=== PATIENT | male | born 1965 | race Caucasian/White ===

== ENCOUNTER 2016-08-22 18:34 | Emergency (ER) | payer OTHER ==
[~2016-08-22] VITALS: Ht 185.4 cm; Wt 111.1 kg
[~2016-08-22 18:34] MED LIST: ASPIRIN CHILDRE81 MG PO; BACTRIM DS TAB1 EACH PO; CIPRO 500MG (E500 MG PO; CIPRO 500MG TA500 MG PO; ENTOCORT EC3 MG PO; FLAG500 PO; HUMIRA (4040 MG/0.8; HUMIRA (4040 MG/0.8 INJ; HUMIRA PEN40 MG/0.8 SC; MI-ACID GAS REL80 MG PO; MULTIPLE VITAM1 EAC2 PO; MULTIVITAMIN1 TAB PO; OXYCODONE5 MG PO; PERCOCET 325 MG1 TA2 PO; PERCOCET 5-3251 EACH PO; PREDNISONE 10MG10 M1 PO; PREDNISONE 20MG20 MG PO; PREDNISONE10 MG PO; PREDNISONE20 MG PO; PREDNISONE5 MG PO; PREDNISONE50 MG PO; TRAMADOL HYDROC50 MG PO; XANAX0.5 MG PO; ZOFRAN ODT4 MG PO; ZOFRAN4 M1 PO; ZOFRAN4 M1 SL
--- NOTE | 2016-08-22 18:49 | ED GENERAL ADULT ---
History of Present Illness General Chief Complaint: General Adult Stated Complaint: PER PT SEVERE ANXIETY ATTACK Source: patient Exam Limitations: no limitations Vital Signs & Intake/Output Vital Signs & Intake/Output Vital Signs Date Time Temp Pulse Resp B/P Pulse O2 O2 Flow FiO2 Ox Delivery Rate 08/22 2117 98 Room Air 08/23 2027 97.5 95 18 137/88 94 08/22 1837 96.3 91 20 154/89 99 Room Air Room Air ED Intake and Output 08/23 0000 08/22 1200 Intake Total Output Total Balance Patient 245 lb Weight Allergies Coded Allergies: infliximab (From REMICADE) (Severe, SHORT OF BREATH 09/06/15) Penicillins (PLATELETS DECREASE 11/04/15) cefuroxime (GI DISTRESS 09/06/15) ibuprofen (AVOIDS IBUPROFEN - UPSET STOMACH 11/03/15) Reconcile Medications Adalimumab (Humira Pen) 40 MG/0.8 ML PEN.IJ.KIT 1 SYR SC QW CHRONS (Reported) Multivitamin (Multiple Vitamins) 1 EACH TABLET 1 TAB PO EOD SUPPLEMENT ( Reported) Oxycodone HCl/Acetaminophen (Percocet 5-325 MG Tablet) 1 EACH TABLET 1-2 TAB PO Q4-6 PRN PAIN Sulfamethoxazole/Trimethoprim (Bactrim Ds Tablet) 1 EACH TABLET 1 TAB PO BID INTRA-ABDOMINAL INFECTION TAKE WITH FOOD Triage Note: PT TO ED WITH C/O ANXIETY ATTACK, WORK IS VERY STRESSFUL AND I HAD CANCER AND WENT THROUGH CHEMO, NOW SOMETHING WITH MY LYMPH NODES, SO I'M WORRIED ABOUT THAT TOO, HAD A PET SCAN YESTERDAY. Triage Nurses Notes Reviewed? yes Onset: Abrupt Duration: hour(s): Timing: recent history HPI: 08/22/16 This 51-year-old man with a past medical history of intestinal cancer. He status post resection, and is status post chemotherapy. He said that he has a history of anxiety and today felt very anxious as his waiting for the results of his PET scan. He denies chest pain but admits to heart fluttering. The onset of the symptoms were abrupt, the duration was just today, the severity was significant as his symptoms required him to come to the emergency department for care. He did say that he had a recent CT scan of the abdomen which showed some lymph nodes and this concerned him and prompted the need for the PET scan. He did try a Xanax earlier today. No chest pain. No shortness of breath. Past History Travel History Traveled to [place] past [place] day No Medical History Any Pertinent Medical History? 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 FATHER (none contributory). Hx Contributory? No Review of Systems Review of Systems Constitutional: Denies: fever. EENTM: Denies: visual changes. Respiratory: Denies: short of breath. Cardiovascular: Reports: palpitations. Denies: chest pain. GI: Denies: abdominal pain. Genitourinary: Reports: no symptoms. Musculoskeletal: Reports: no symptoms. Skin: Reports: no symptoms. Neurological/Psychological: Reports: no symptoms. Hematologic/Endocrine: Reports: no symptoms. Immunologic/Allergic: Reports: no symptoms. Physical Exam Physical Exam General Appearance: alert, awake, anxious, mild distress Head: atraumatic, normal appearance Eyes: Bilateral: normal appearance, PERRL, EOMI. Ears, Nose, Throat: normal pharynx, normal ENT inspection Neck: normal inspection, supple, full range of motion Respiratory: normal breath sounds, chest non-tender, no respiratory distress Cardiovascular: regular rate/rhythm Peripheral Pulses: 4+ radial (R), 4+ radial (L) Gastrointestinal: non-tender Back: vertebral tenderness Extremities: normal range of motion Neurologic/Psych: no motor/sensory deficits, awake, alert, oriented x 3 Skin: intact, normal color, warm/dry Core Measures ACS in differential dx? No CVA/TIA Diagnosis: No Severe Sepsis Present: No Septic Shock Present: No Progress Differential Diagnoses I considered the following diagnoses in my evaluation of the patient: [ Dysrhythmia, electrolyte derangement, anxiety, pulmonary embolism,] Plan of Care: Orders Procedure Date/time Status TROPONIN LEVEL 08/22 1853 Complete COMPREHENSIVE METABOLIC PANEL 08/22 1853 Complete CBC WITHOUT DIFFERENTIAL 08/22 1853 Complete EKG 08/22 1853 Active Laboratory Tests 08/22/16 2002: Anion Gap 11, Estimated GFR > 60, BUN/Creatinine Ratio 12.9, Glucose 86, Calcium 9.4, Total Bilirubin 0.5, AST 15 L, ALT 24, Alkaline Phosphatase 84, Troponin I < 0.01, Total Protein 6.9, Albumin 3.4 L, Globulin 3.5, Albumin/Globulin Ratio 1.0 L, CBC w Diff NO MAN DIFF REQ, RBC 4.07 L, MCV 94.1 H, MCH 29.9, RDW 14.8 H, MPV 8.8, Gran % 71.0, Lymphocytes % 15.7 L, Monocytes % 11.0 H, Eosinophils % 1.3, Basophils % 1.0, Absolute Granulocytes 7.4 H, Absolute Lymphocytes 1.6, Absolute Monocytes 1.2 H, Absolute Eosinophils 0.1, Absolute Basophils 0.1, PUBS MCHC 31.7 L Initial ED EKG: NSR, PVC Departure Departure Disposition: HOME OR SELF CARE Condition: Stable Clinical Impression Primary Impression: Anxiety Secondary Impressions: Palpitations, PVC (premature ventricular contraction) Referrals: APRIL ZEPEDA,PUNEET Kraft (PCP/Family) Departure Forms: Customer Survey General Discharge Information Comments 08/22/16 9 PM The patient symptoms resolved with Ativan. EKG unremarkable other than PVC. Troponin was negative. Vital signs are stable. He will follow-up with the medical support specialist and continue the Xanax as directed, return to the emergency department if worse Critical Care Note Critical Care Note Critical Care Time: non-applicable
[2016-08-22 20:22] LABS: ABSOLUTE BASOPHIL COUNT 0.1 /CUMM (0.0-0.2); ABSOLUTE EOSINOPHIL COUNT 0.1 /CUMM (0.0-0.7); ABSOLUTE GRANULOCYTE CT 7.4 /CUMM (1.4-6.5); ABSOLUTE LYMPH COUNT 1.6 /CUMM (1.2-3.4); ABSOLUTE MONOCYTE COUNT 1.2 /CUMM (0.10-0.60); EOSINOPHIL % 1.3 % (0-5); HEMATOCRIT 38.3 % (42-52); MEAN CORPUSCULAR HGB 29.9 PG (27.0-31.0); MEAN CORPUSCULAR HGB CONC 31.7 G/DL (33.0-37.0); MEAN CORPUSCULAR VOLUME 94.1 FL (80.0-94.0); MEAN PLATELET VOLUME 8.8 FL (7.4-10.4); PLATELET COUNT 374 /CUMM (130-400); RBC DISTRIBUTION WIDTH 14.8 % (11.5-14.5); RED BLOOD CELL CT 4.07 /CUMM (4.70-6.10); WHITE BLOOD CELL COUNT 10.5 /CUMM (4.8-10.8)
[2016-08-22 20:28] VITALS: BP 137/88
== END 2016-08-22 21:19 ==
LOC: ERH 18:34
PROVIDERS: Emergency Medicine
DX: F41.9 Anxiety disorder, unspecified (principal); R00.2 Palpitations; I49.3 Ventricular premature depolarization
CPT/HCPCS: 93005; 93010

== ENCOUNTER 2016-09-22 18:18 | Emergency (ER) | payer OTHER ==
[~2016-09-22] VITALS: Ht 185.4 cm; Wt 111.1 kg
[2016-09-22] MEDS ORDERED: ALPRAZOLAM0.25 M1 PO (19:29)
[2016-09-22] MEDS ORDERED: LYRICA75 M1 PO (19:29)
[2016-09-22] MEDS ORDERED: ESCITALOPRAM OX10 MG PO (19:29)
[2016-09-22] MEDS ORDERED: LOMOTIL 2.5-0.1 EACH PO (19:30)
[2016-09-22] MEDS ORDERED: TRAZODONE HCL50 M1 PO (19:30)
[2016-09-22] MEDS ORDERED: ASPIRIN EC81 M1 PO (19:30)
--- NOTE | 2016-09-22 20:39 | ED CARDIAC/CP/PALPITATIONS ---
History of Present Illness General Chief Complaint: General Adult Stated Complaint: CHRONIC INSOMNIA Source: patient, FATHER Exam Limitations: no limitations Vital Signs & Intake/Output Vital Signs & Intake/Output Vital Signs Date Time Temp Pulse Resp B/P Pulse O2 O2 Flow FiO2 Ox Delivery Rate 09/22 1901 98 Room Air 09/22 1837 98.3 93 14 143/98 99 Room Air Allergies Coded Allergies: infliximab (From REMICADE) (Severe, SHORT OF BREATH 09/06/15) Penicillins (PLATELETS DECREASE 11/04/15) cefuroxime (GI DISTRESS 09/06/15) ibuprofen (AVOIDS IBUPROFEN - UPSET STOMACH 11/03/15) Reconcile Medications Alprazolam 0.25 MG TABLET 1 TAB PO TIDPRN PRN ANXIETY (Reported) Aspirin (Ecotrin*) 81 MG TABLET.DR 1 TAB PO DAILY HEART/BLOOD (Reported) Diphenoxylate HCl/Atropine (Lomotil 2.5-0.025 MG Tablet) 2.5 MG-0.025 MG TABLET 1 TAB PO 4 TIMES/DAY PRN DIARRHEA (Reported) Escitalopram Oxalate 10 MG TABLET 1 TAB PO DAILY MENTAL HEALTH (Reported) Multivitamin (Multiple Vitamins) 1 EACH TABLET 1 TAB PO EOD SUPPLEMENT ( Reported) Pregabalin (Lyrica) 75 MG CAPSULE 1 CAP PO BID NERVE PAIN (Reported) Trazodone HCl 50 MG TABLET 1 TAB PO QPM SLEEP (Reported) Triage Note: PT TO ED FOR PALPITATIONS AND "CHRONIC INSOMNIA" REPORTING HE IS SUPPOSED TO GET A HOLTER MONITOR TOMORROW "FOR PVC'S" PT ALSO REPORTING HE HAS BEEN UNABLE TO "SLEEP IN 3 WEEKS, BUT I NAPPED TODAY." DENIES CP, SOB, GIBBS. Triage Nurses Notes Reviewed? yes HPI: Patient presents for evaluation of heart palpitations that he feels are due to anxiety stress and insomnia. Patient states he has had intermittent episodes of heart palpitations over the past month and has a Holter monitor pending via his primary care doctor, Dr. Rico. He denies any syncopal episodes. He states he has only minimal caffeine intake, not daily. His physician gave him Lexapro and trazodone for sleep. He has been taking Xanax for about one year for stress and anxiety. The Lexapro he began about 2 weeks ago and the trazodone about one week ago although he states he has taken the trazodone inconsistently. He feels his stress and anxiety are severe and more or less constant but fluctuating in intensity. Medications he is currently taking are not helping. Past History Travel History Traveled to [place] No Medical History Any Pertinent Medical History? 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 FATHER (none contributory). Hx Contributory? No Review of Systems Review of Systems Constitutional: Reports: no symptoms. EENTM: Reports: no symptoms. Respiratory: Reports: no symptoms. Cardiovascular: Reports: see HPI. GI: Reports: no symptoms. Genitourinary: Reports: no symptoms. Musculoskeletal: Reports: no symptoms. Skin: Reports: no symptoms. Neurological/Psychological: Reports: see HPI. Hematologic/Endocrine: Reports: no symptoms. Immunologic/Allergic: Reports: no symptoms. All Other Systems: Reviewed and Negative Physical Exam Physical Exam Cardiovascular: SEE BELOW Comments: General: Alert, calm, cooperative Head: Normocephalic, atraumatic Eyes: Normal inspection, no nystagmus, EOMI Ears: Normal inspection Nose: Normal inspection Throat: Moist mucosa Neck: Supple, no goiter Heart: Regular rate and rhythm, no murmurs rubs or gallops Lungs: Clear to auscultation bilaterally with good air entry Abdomen: Soft nontender nondistended, normal bowel sounds Chest: Nontender Extremities: Normal range of motion grossly, mild tremors present, no cyanosis clubbing or edema of the upper extremities Neurologic: cranial nerves II through XII grossly intact, speech clear, gait normal Psychiatric: No apparent delusions or hallucinations, no pressured speech or thought blocking Core Measures ACS in differential dx? No Severe Sepsis Present: No Septic Shock Present: No Progress Differential Diagnosis: STRESS, ANXIETY, INSOMNIA, DYSRHYTHMIA, pvcS, pacS Plan of Care: Orders Procedure Date/time Status Telemetry/Parcel Post Weigher 09/22 2037 Active TROPONIN LEVEL 09/22 2037 Complete MAGNESIUM 09/22 2037 Complete CBC WITHOUT DIFFERENTIAL 09/22 2037 Complete BASIC METABOLIC PANEL 09/22 2037 Complete EKG 09/22 1838 Active Laboratory Tests 09/22/162050: Anion Gap 10, Estimated GFR > 60, BUN/Creatinine Ratio 10.0, Glucose 97, Calcium 10.1, Magnesium 1.5 L, Troponin I < 0.01, CBC w Diff NO MAN DIFF REQ, RBC 4.85, MCV 89.4, MCH 28.5, RDW 14.7 H, MPV 8.5, Gran % 76.1 H, Lymphocytes % 14.2 L, Monocytes % 8.6, Eosinophils % 0.7, Basophils % 0.4, Absolute Granulocytes 10.2 H, Absolute Lymphocytes 1.9, Absolute Monocytes 1.1 H, Absolute Eosinophils 0.1 , Absolute Basophils 0.1, PUBS MCHC 31.8 L Initial ED EKG: NSR, rate (72), no ST T wave changes Prior EKG: changed (1 PVC ON PRIOR) Rhythm Strip: normal sinus rhythm Comments: 09/22/2016 10:15:32 PM I have updated Gilberto on his test results. He had a brief episode of a pinching left lateral inferior chest pain that was likely secondary to positioning on the stretcher. I've advised him of the PVC seen on his prior EKG and of his slightly low magnesium level. Plan magnesium supplementation, Ambien to help with sleep (discontinuation of trazodone) and follow-up with his Holter monitor on Saturday and his primary care physician on Saturday as already scheduled. Departure Departure Disposition: HOME OR SELF CARE Condition: Stable Clinical Impression Primary Impression: PVCs (premature ventricular contractions) Secondary Impressions: Hypomagnesemia Insomnia Qualifiers: Insomnia type: unspecified Qualified Code: G47.00 - Insomnia, unspecified Referrals: APRIL ZEPEDA,PUNEET Kraft (PCP/Family) Additional Instructions: Discontinue the trazodone and begin Ambien to help with sleep. Magnesium as prescribed. Follow-up with the Holter monitor as scheduled on Saturday and your primary care physician as scheduled on Saturday to reevaluate to magnesium level and her ability to sleep. Return immediately if any concerns or sudden worsening. Thank you for choosing the [facility] for your care. It was a pleasure to serve you today. Maximus Quigley M.D. [facility] Departure Forms: Customer Survey General Discharge Information Prescriptions: Current Visit Scripts Zolpidem Tartrate (Ambien) 1 TAB PO QPMP #10 TAB Magnesium Oxide (Magnesium) 1 CAP PO DAILY #30 CAP Critical Care Note Critical Care Note Critical Care Time: non-applicable
[2016-09-22 21:00] LABS: ABSOLUTE BASOPHIL COUNT 0.1 /CUMM (0.0-0.2); ABSOLUTE EOSINOPHIL COUNT 0.1 /CUMM (0.0-0.7); ABSOLUTE GRANULOCYTE CT 10.2 /CUMM (1.4-6.5); ABSOLUTE LYMPH COUNT 1.9 /CUMM (1.2-3.4); ABSOLUTE MONOCYTE COUNT 1.1 /CUMM (0.10-0.60); BASOPHIL % 0.4 % (0.0-2.0); EOSINOPHIL % 0.7 % (0-5); GRANULOCYTE % 76.1 % (42.2-75.2); HEMATOCRIT 43.4 % (42-52); MEAN CORPUSCULAR HGB 28.5 PG (27.0-31.0); MEAN CORPUSCULAR HGB CONC 31.8 G/DL (33.0-37.0); MEAN CORPUSCULAR VOLUME 89.4 FL (80.0-94.0); MEAN PLATELET VOLUME 8.5 FL (7.4-10.4); PLATELET COUNT 367 /CUMM (130-400); RBC DISTRIBUTION WIDTH 14.7 % (11.5-14.5); RED BLOOD CELL CT 4.85 /CUMM (4.70-6.10); WHITE BLOOD CELL COUNT 13.3 /CUMM (4.8-10.8)
[2016-09-22] MEDS ORDERED: MAGNESIUM400 M1 PO (22:18)
[2016-09-22] MEDS ORDERED: AMBIEN5 M1 PO (22:18)
[2016-09-22 22:33] VITALS: BP 138/69
== END 2016-09-22 22:33 ==
LOC: ERH 18:18
PROVIDERS: Emergency Medicine
DX: I49.3 Ventricular premature depolarization (principal); E83.42 Hypomagnesemia; G47.00 Insomnia, unspecified
CPT/HCPCS: 93005; 93010

== ENCOUNTER 2016-09-28 03:56 | Emergency (ER) | payer OTHER ==
[~2016-09-28] VITALS: Ht 185.4 cm; Wt 104.3 kg
[~2016-09-28 03:56] MED LIST changes: +ALPRAZOLAM0.25 M1 PO; +AMBIEN5 M1 PO; +ASPIRIN EC81 M1 PO; +ESCITALOPRAM OX10 MG PO; +LOMOTIL 2.5-0.1 EACH PO; +LYRICA75 M1 PO; +MAGNESIUM400 M1 PO; +TRAZODONE HCL50 M1 PO
--- NOTE | 2016-09-28 04:37 | ED PSYCHIATRIC COMPLAINT ---
History of Present Illness General Chief Complaint: General Adult Stated Complaint: " I'M HAVING A FULL BLOWN ANXIETY ATTACK" Source: patient, family, old records Exam Limitations: no limitations Vital Signs & Intake/Output Vital Signs & Intake/Output Vital Signs Date Time Temp Pulse Resp B/P Pulse O2 O2 Flow FiO2 Ox Delivery Rate 09/29 0537 97.7 81 18 113/68 96 09/28 2044 97.1 92 18 147/86 98 Room Air 09/28 1311 82 16 132/74 94 Room Air 09/28 0959 87 16 128/72 98 Room Air ED Intake and Output 09/29 0000 09/28 1200 Intake Total Output Total Balance Patient 230 lb Weight Allergies Coded Allergies: infliximab (From REMICADE) (Severe, SHORT OF BREATH 09/06/15) Penicillins (PLATELETS DECREASE 11/04/15) azathioprine (From IMURAN) ("PLATLETS DISAPPEARED" 09/28/16) cefuroxime (GI DISTRESS 09/06/15) ibuprofen (AVOIDS IBUPROFEN - UPSET STOMACH 11/03/15) Triage Note: 51 YO MALE WITH HX OF ANXIETY TO ED COMPLAINING OF INCREASING ANXIETY RELATED TO INABILITY TO SLEEP. DENIES HI. WHEN QUESTIONED ABOUT SI STATES "I DONT WANT TO HURT MYSELF BUT I WOULD GO TO [facility] TO GET SOME SLEEP. I NEED TO BE ADMITTED AND THEY NEED TO GIVE ME SOMETHING TO SLEEP." REPORTS ONLY SLEEPING "A COUPLE HOURS A NIGHT FOR 1 MONTH." HAS TAKEN MELATONIN, TYLENOL PM, AMBIEN AND TRAZADONE WITHOUT RELIEF. Triage Nurses Notes Reviewed? yes Onset: 1 month Duration: week(s):, constant, continues in ED, getting worse Timing: recent history Severity: severe Associated Symptoms: anxiety, insomnia, suicidal ideation HPI: 1 month prior to admission patient complains of increasing insomnia despite increasing doses of Lexapro Xanax and Ambien. It has gotten to the point that he wants to and considers suicide. His mother requests admission so he can be put to sleep. He denies complaints of fever chills nausea vomiting diarrhea abdominal pain chest pain shortness of breath headache dysuria rash bleeding. (JOHN ZEPEDA,NOVA) Reconcile Medications Alprazolam 0.25 MG TABLET 1 TAB PO TIDPRN PRN ANXIETY (Reported) Aspirin (Ecotrin*) 81 MG TABLET.DR 1 TAB PO DAILY HEART/BLOOD (Reported) Diphenoxylate HCl/Atropine (Lomotil 2.5-0.025 MG Tablet) 2.5 MG-0.025 MG TABLET 1 TAB PO 4 TIMES/DAY PRN DIARRHEA (Reported) Escitalopram Oxalate 10 MG TABLET 1 TAB PO DAILY MENTAL HEALTH (Reported) Magnesium Oxide 400 MG TABLET 1 TAB PO DAILY REPLACEMENT (Reported) Magnesium Oxide (Magnesium) 400 MG CAPSULE 1 CAP PO DAILY low magnesium level Multivitamin (Multiple Vitamins) 1 EACH TABLET 1 TAB PO EOD SUPPLEMENT ( Reported) Pregabalin (Lyrica) 75 MG CAPSULE 1 CAP PO BID NERVE PAIN (Reported) Trazodone HCl 50 MG TABLET 1 TAB PO QPM SLEEP (Reported) Zolpidem Tartrate 5 MG TABLET 1 TAB PO QPMP SLEEP (Reported) Zolpidem Tartrate (Ambien) 5 MG TABLET 1 TAB PO QPMP insomnia (RASHI ZEPEDA,CASH) Past History Travel History Traveled to [place] past [place] No Medical History Any Pertinent Medical History? 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 FATHER (none contributory). Hx Contributory? No (NOVA LOPEZ MD) Review of Systems Review of Systems Constitutional: Reports: no symptoms. EENTM: Reports: no symptoms. Respiratory: Reports: no symptoms. Cardiovascular: Reports: no symptoms. GI: Reports: no symptoms. Genitourinary: Reports: no symptoms. Musculoskeletal: Reports: no symptoms. Skin: Reports: no symptoms. Neurological/Psychological: Reports: see HPI. Denies: anxiety. Hematologic/Endocrine: Reports: no symptoms. Immunologic/Allergic: Reports: no symptoms. All Other Systems: Reviewed and Negative (NOVA LOPEZ MD) Physical Exam Physical Exam General Appearance: well developed/nourished, alert, awake, anxious, moderate distress Head: atraumatic, normal appearance Eyes: Bilateral: normal appearance, PERRL, EOMI. Ears, Nose, Throat: normal pharynx, normal ENT inspection, hearing grossly normal, moist mucus membranes Neck: normal inspection, supple, full range of motion, no midline tenderness Respiratory: normal breath sounds, chest non-tender, no respiratory distress, quiet respiration, lungs clear Cardiovascular: regular rate/rhythm, normal peripheral pulses, norml femoral pulses equa Gastrointestinal: normal bowel sounds, soft, non-tender, no organomegaly Extremities: normal range of motion, no ligament instability Neurological/Psychiatric: no motor/sensory deficits, awake, agitated, alert, anxious, workflow 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 psych referral * no evidence of toxic ingestion * on re-evaluation the patient is awake and alert with normal speech and normal gait. The patient is clinically sober and safe for discharge / detox referral SAD PERSONS SAD PERSONS Response Value Male Sex? yes 1 Age <19 or >45 years? yes 1 Depression/Hopelessness? yes 2 Rational Thinking Loss? yes 2 Single//? yes 1 Social Support? has support 0 Stated Future Intent? yes 2 Total 9 SAD PERSONS Done? yes (NOVA LOPEZ MD) Progress Differential Diagnosis: drug intoxication, drug overdose, drug withdrawal, electrolyte abnormality, hypoglycemia Plan of Care: Orders Procedure Date/time Status Continuous Observation Monitor 09/29 813 Active Current Medications Sig/Gia Start time Last Medication Dose Stop Time Status Admin Pregabalin 75 MG BID 09/28 1000 UNVr (Lyrica) Gabapentin 300 MG Q8 09/28 0906 UNVr (Neurontin) 09/28/2016 7:16:09 AM Patient signed out to me by Dr. Lopez. Pending crisis evaluation and disposition. 09/29/2016 7:16:48 AM Patient signed out to me by Dr. Barajas. Pending crisis evaluation and disposition. 9:39 AM CLEARED FOR DISCHARGE BY PSYCHIATRIST. (CASH MARKHAM MD) Hand-Off Endorsed To: CASH MARKHAM MD Endorsed Time: 0700 Pending: consult (NOVA LOPEZ MD) Hand-Off Endorsed To: LETTY BARAJAS MD Endorsed Time: 190 Pending: consult (CRISIS REEVAL IN AM) (CASH MARKHAM MD) Hand-Off Endorsed To: CASH MARKHAM MD Endorsed Time: 0700 Pending: consult (LETTY BARAJAS MD) Departure Departure Condition: Stable Clinical Impression Primary Impression: Insomnia disorder Qualifiers: Insomnia type: unspecified Qualified Code: G47.00 - Insomnia, unspecified Secondary Impressions: Anxiety Referrals: PUNEET CHEN MD (PCP/Family) Departure Forms: Customer Survey General Discharge Information (NOVA LOPEZ MD) Departure Time of Disposition: 929 Disposition: HOME OR SELF CARE Additional Instructions: FOLLOW UP WITH YOUR OUTPATIENT COUNSELLOR. (CASH MARKHAM MD) Disposition: STILL A PATIENT Condition: Stable Clinical Impression Primary Impression: Insomnia disorder Qualifiers: Insomnia type: unspecified Qualified Code: G47.00 - Insomnia, unspecified Secondary Impressions: Anxiety Referrals: PUNEET CHEN MD (PCP/Family) Departure Forms: Customer Survey General Discharge Information (NOVA LOPEZ MD)
[2016-09-28 04:49] LABS: ABSOLUTE BASOPHIL COUNT 0 /CUMM (0.0-0.2); ABSOLUTE EOSINOPHIL COUNT 0.1 /CUMM (0.0-0.7); ABSOLUTE GRANULOCYTE CT 10.6 /CUMM (1.4-6.5); ABSOLUTE LYMPH COUNT 1.3 /CUMM (1.2-3.4); ABSOLUTE MONOCYTE COUNT 1.1 /CUMM (0.10-0.60); BASOPHIL % 0.2 % (0.0-2.0); EOSINOPHIL % 0.9 % (0-5); GRANULOCYTE % 80.2 % (42.2-75.2); HEMATOCRIT 42.9 % (42-52); MEAN CORPUSCULAR HGB 28.5 PG (27.0-31.0); MEAN CORPUSCULAR HGB CONC 31.9 G/DL (33.0-37.0); MEAN CORPUSCULAR VOLUME 89.3 FL (80.0-94.0); MEAN PLATELET VOLUME 8.7 FL (7.4-10.4); PLATELET COUNT 330 /CUMM (130-400); WHITE BLOOD CELL COUNT 13.2 /CUMM (4.8-10.8)
--- NOTE | 2016-09-28 16:17 | ED PSYCH CRISIS CONSULTATION ---
See Addendum Crisis Consult Basic Assessment Date of Consult: 09/28/16 Responsible Person/Accompanied By: Mother Insurance Authorization: Insurance #1: Insurance name: RICHARD JAY Phone number: Policy number: [id number] Group number: [id number] Authorization number: ED Provider: Patient's ED Provider: NOVA LOPEZ MD Primary Care Physician: Patient's PCP: PUNEET CHEN MD PCP's Chief Complaint: General Adult Patient's Quote: " I have not gotten any good sleep since a month ago." Present Illness: Pt is a 51 yo single ( never ) male BIB mother for chronic insomnia and passive SI. Per pt notes he stated "he has not been able to get a good nights sleep and that he would go to great lengths to get some." Pt UTOX was postive for benzos as he was given xanax in ED early this AM. Pt Utox was negative for all other substances. Pt presented as cooperative during crisis eval. He stated his main concern is his sleep. Pt currently lives at home with his parents and has 1 sister who lives local with her family and is very supportive. Pt said he has had a bad past year since a cancerous tumor was found and was surgically removed. 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 He stated he had chemo-therapy treatment from November 2015-Jun 2016. 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 Pt denies hx of MH/SA tx and hospitalizations. He noted he only takes medications as prescribed and are " mainly over the counter " ie. tylenol pm. Pt said he has had SI thoughts before but no concrete thought or idea of how we would take his own life. Pt says he does not feel safe in the world at the moment and is seeking voluntary admission. This headline writer consulted [facility] Dr. Katz. Pt to be held over for re-evaluation in the am and recommends trazadone for good night's sleep. Patient's Address: [address] [place] [address] Other Who Do You Live With? Father Family/Informants Interviewed: pt unable to participate Allergies - Coded Allergies: infliximab (From REMICADE) (Severe, SHORT OF BREATH 09/06/15) Penicillins (PLATELETS DECREASE 11/04/15) azathioprine (From IMURAN) ("PLATLETS DISAPPEARED" 09/28/16) cefuroxime (GI DISTRESS 09/06/15) ibuprofen (AVOIDS IBUPROFEN - UPSET STOMACH 11/03/15) Current Medications - Scheduled Medications Aspirin (Ecotrin*) 81 MG TABLET.DR 1 TAB PO DAILY HEART/BLOOD (Reported) Entered as Reported by SOLIS LONG on 09/22/16 193 Escitalopram Oxalate 10 MG TABLET 1 TAB PO DAILY MENTAL HEALTH #30 (Reported) Entered as Reported by SOLIS LONG on 09/22/16 192 Magnesium Oxide (Magnesium) 400 MG CAPSULE 1 CAP PO DAILY low magnesium level #30 CAP Prescribed by NICOLETTE GODINEZ MD on 09/22/16 Multivitamin (Multiple Vitamins) 1 EACH TABLET 1 TAB PO EOD SUPPLEMENT ( Reported) Entered as Reported by SOLIS LONG on 10/28/15 1618 Pregabalin (Lyrica) 75 MG CAPSULE 1 CAP PO BID NERVE PAIN #60 (Reported) Entered as Reported by SOLIS LONG on 09/22/161928 Trazodone HCl 50 MG TABLET 1 TAB PO QPM SLEEP #30 (Reported) Entered as Reported by SOLIS LONG on 09/22/16 193 Zolpidem Tartrate (Ambien) 5 MG TABLET 1 TAB PO QPMP insomnia #10 TAB Prescribed by NICOLETTE GODINEZ MD on 09/22/16 Scheduled PRN Medications Alprazolam 0.25 MG TABLET 1 TAB PO TIDPRN PRN ANXIETY #60 (Reported) Entered as Reported by SOLIS LONG on 09/22/16 192 Diphenoxylate HCl/Atropine (Lomotil 2.5-0.025 MG Tablet) 2.5 MG-0.025 MG TABLET 1 TAB PO 4 TIMES/DAY PRN DIARRHEA #60 (Reported) Entered as Reported by SOLIS LONG on 09/22/161929 Laboratory Results: Laboratory Tests 09/28/16 0730: Urine Opiates Screen < 100.00, Methadone Screen < 40, Barbiturate Screen < 60, Ur Phencyclidine Scrn < 6.00, Amphetamines Screen < 100, U Benzodiazepines Scrn 314 H, Urine Cocaine Screen < 50, Urine Cannabis Screen < 5.00 09/28/16 0440: Anion Gap 8, Estimated GFR > 60, BUN/Creatinine Ratio 22.9, Glucose 104 H, Calcium 9.9, Total Bilirubin 0.7, AST 18, ALT 38, Alkaline Phosphatase 85, Total Protein 7.3, Albumin 3.7, Globulin 3.6, Albumin/Globulin Ratio 1.0 L, CBC w Diff NO MAN DIFF REQ, RBC 4.80, MCV 89.3, MCH 28.5, RDW 15.0 H, MPV 8.7, Gran % 80.2 H, Lymphocytes % 10.0 L, Monocytes % 8.7, Eosinophils % 0.9, Basophils % 0.2, Absolute Granulocytes 10.6 H, Absolute Lymphocytes 1.3, Absolute Monocytes 1.1 H, Absolute Eosinophils 0.1, Absolute Basophils 0, PUBS MCHC 31.9 L, Serum Alcohol < 10.0 Past History Past Medical History Neurological: NONE EENT: sinusitis, ALLERGIES (sEASONAL) Cardiovascular: THROMBOCYTOPENIA S/T [place] MEDS Respiratory: NONE Gastrointestinal: Crohn's disease Hepatic: NONE Renal: HX KIDNEY STONE Musculoskeletal: NONE Psychiatric: anxiety Endocrine: obesity Blood Disorders: ITP Cancer(s): NONE 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 Physical Limitations (Interventions): none stated Psychiatric Treatment History Psych Treatment Psychiatric Treatment No Inpatient Treatment No Outpatient Treatment No Diagnosis by History: Pt has no hx of dx. He said he has experience emotional distress in the past. Substance Use/Abuse History Drug Use/Abuse Substances Used/Abused No Substance Abuse Treatment Substance Abuse Treatment Past Substance Abuse [place] No Inpatient Treatment No Outpatient Treatment No Current Mental Status Mental Status Orientation: Person, Place, Situation Affect: Anxious, Flat, Hopeless Speech: WNL Neuro-vegetative: Helpless Appearance Appearance- Dress/Hygiene: Pt is dressed in blue hospital gown. Hygiene fair. Behaviors Thought Process: WNL Thought Content: WNL Memory: WNL Insight: Fair SI/HI Risk Assessment Past Suicidal Ideation/Attempts Yes Current Suicidal Ideation/Att Yes Past Homicidal Ideation/Att: No Current Homicidal Ideation/Attempts No Degree of Intent: Thoughts/No Intent Risk Factors: high anxiety/distress, male Lethality Ratin (mild) PTSD Checklist PTSD Done? pt unable to participate ED Management Sitter: Yes Restraints: No DSM5/PS Stressors/Medical Prob Diagnosis' (DSM 5, Stressors, Medical): F 41.1 Unspecified anxiety d/o medical: per pt: Khrohn's disease, neuropathy, chronic insomnia, hx of cancer psychosocial: limited social supports Current GAF: 45 Comments: Pt reports he wants a good nights sleep. He currently does not feel " safe in the world." Departure Disposition Psych Medical Clearance Date: 09/28/16 Medically Cleared at: 1530 Time Started: 1530 Time Ended: 1600 Psychiatrist Consulted: Sterling ZEPEDA,Carlos Date Disposition Established: 09/28/16 Time Disposition Established: 1599 Plan for Disposition - Modality: Re-evaluation Rationale for Disposition: Pt presents to ED with chronic insomnia and passive SI ( SI due to not sleeping) . Pt denies plan/intent to kill himself and denies HI/AVH. Clinician consulted with Dr. Katz and recommends the pt be re-evaluated in the morning and to prescribe trazadone to assist with sleep. Referrals APRIL ZEPEDA,PUNEET Kraft (PCP/Family)
[2016-09-29] MEDS ORDERED: MAGNESIUM OXID400 M1 PO (03:16)
[2016-09-29] MEDS ORDERED: ZOLPIDEM TARTRAT5 M1 PO (03:16)
[2016-09-29 09:49] VITALS: BP 125/83
== END 2016-09-29 09:50 ==
LOC: ERH 03:56
PROVIDERS: Emergency Medicine
DX: G47.00 Insomnia, unspecified (principal); F41.9 Anxiety disorder, unspecified
CPT/HCPCS: 80307; G0463; G0480

== ENCOUNTER 2016-10-11 09:24 | Emergency (ER) | payer OTHER ==
[~2016-10-11] VITALS: Ht 185.4 cm; Wt 104.3 kg
[~2016-10-11 09:24] MED LIST changes: +MAGNESIUM OXID400 M1 PO; +ZOLPIDEM TARTRAT5 M1 PO
[2016-10-11 10:36] LABS: ABSOLUTE BASOPHIL COUNT 0 /CUMM (0.0-0.2); ABSOLUTE EOSINOPHIL COUNT 0 /CUMM (0.0-0.7); ABSOLUTE GRANULOCYTE CT 9.4 /CUMM (1.4-6.5); ABSOLUTE LYMPH COUNT 1.1 /CUMM (1.2-3.4); ABSOLUTE MONOCYTE COUNT 0.7 /CUMM (0.10-0.60); BASOPHIL % 0.2 % (0.0-2.0); EOSINOPHIL % 0.1 % (0-5); MEAN CORPUSCULAR HGB 28.7 PG (27.0-31.0); MEAN CORPUSCULAR HGB CONC 32.7 G/DL (33.0-37.0); MEAN CORPUSCULAR VOLUME 87.8 FL (80.0-94.0); MEAN PLATELET VOLUME 8.4 FL (7.4-10.4); PLATELET COUNT 415 /CUMM (130-400); RBC DISTRIBUTION WIDTH 15.3 % (11.5-14.5); RED BLOOD CELL CT 5.02 /CUMM (4.70-6.10); WHITE BLOOD CELL COUNT 11.3 /CUMM (4.8-10.8)
--- NOTE | 2016-10-11 10:43 | ED CARDIAC/CP/PALPITATIONS ---
History of Present Illness General Chief Complaint: Palpitations Stated Complaint: PALPITATIONS Source: patient Exam Limitations: no limitations Vital Signs & Intake/Output Vital Signs & Intake/Output Vital Signs Date Time Temp Pulse Resp B/P B/P Pulse O2 O2 Flow FiO2 Mean Ox Delivery Rate 10/11 1619 98.2 88 19 136/82 97 Room Air 10/11 1531 95 Room Air Room Air 10/11 1433 98.0 100 20 130/87 98 Room Air 10/11 1149 98.0 82 20 142/86 98 Room Air 10/11 0939 97.8 90 20 139/91 98 Room Air Room Air Allergies Coded Allergies: infliximab (From REMICADE) (Severe, SHORT OF BREATH 09/06/15) Penicillins (PLATELETS DECREASE 11/04/15) azathioprine (From IMURAN) ("PLATLETS DISAPPEARED" 09/28/16) cefuroxime (GI DISTRESS 09/06/15) ibuprofen (AVOIDS IBUPROFEN - UPSET STOMACH 11/03/15) Reconcile Medications Alprazolam 0.25 MG TABLET 1 TAB PO TIDPRN PRN ANXIETY (Reported) Aspirin (Ecotrin*) 81 MG TABLET.DR 1 TAB PO DAILY HEART/BLOOD (Reported) Diphenoxylate HCl/Atropine (Lomotil 2.5-0.025 MG Tablet) 2.5 MG-0.025 MG TABLET 1 TAB PO 4 TIMES/DAY PRN DIARRHEA (Reported) Escitalopram Oxalate 10 MG TABLET 1 TAB PO DAILY MENTAL HEALTH (Reported) Magnesium Oxide (Magnesium) 400 MG CAPSULE 1 CAP PO DAILY low magnesium level Mirtazapine 30 MG TABLET 1 TAB PO QPM SLEEP (Reported) Multivitamin (Multiple Vitamins) 1 EACH TABLET 1 TAB PO EOD SUPPLEMENT ( Reported) Pregabalin (Lyrica) 75 MG CAPSULE 1 CAP PO BID NERVE PAIN (Reported) Trazodone HCl 50 MG TABLET 1 TAB PO QPM SLEEP (Reported) Zolpidem Tartrate (Ambien) 5 MG TABLET 1 TAB PO QPMP insomnia Triage Note: PT TO ED WITH FATHER "HE IS BEING TREATED FOR INSOMINA AND DR CHEN HAS CHANGED HIS MEDS 3 TIMES SO FAR, HAS BEEN SEEN FOR PALPATATIONS, 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 "HE HAS STRESS AND ANXIETY, HE JUST FINISHED CHEMO IN JUNE FOR COLON CA". Triage Nurses Notes Reviewed? yes HPI: Patient presents for evaluation of heart palpitations. Symptoms began abruptly last night. Patient last felt the palpitations earlier this morning. The patient denies palpitations here in the emergency department. He denies any associated chest pain. Patient does state however that he has trouble breathing when he tries to lie flat. Patient recently discontinued Lyrica and Lexapro and trazodone but has now started taking mirtazapine for insomnia. Patient states he had a Holter monitor placed 2 weeks ago for heart palpitations. Patient has a referral to Dr. Moi Pena pending as a result of "PVCs". Past History Travel History Traveled to [place] past 21 day No Medical History Any Pertinent Medical History? 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 FATHER (none contributory). Hx Contributory? No Review of Systems Review of Systems Constitutional: Reports: no symptoms. EENTM: Reports: no symptoms. Respiratory: Reports: no symptoms. Cardiovascular: Reports: see HPI. GI: Reports: no symptoms. Genitourinary: Reports: no symptoms. Musculoskeletal: Reports: no symptoms. Skin: Reports: no symptoms. Neurological/Psychological: Reports: no symptoms. Hematologic/Endocrine: Reports: no symptoms. Immunologic/Allergic: Reports: no symptoms. All Other Systems: Reviewed and Negative Physical Exam Physical Exam Cardiovascular: regular rate/rhythm (SEE BELOW) Comments: Gen.: Well-nourished, well-developed, no acute respiratory distress. Head: Normocephalic, atraumatic. Eyes: Normal inspection bilaterally Ears: Normal inspection bilaterally Nose: Normal inspection Throat/mouth : Moist mucosa Neck: Supple, full range of motion, no goiter Heart: Regular rate and rhythm, no murmurs rubs or gallops Lungs: Clear to auscultation bilaterally with normal air entry Chest: Nontender Back: Normal range of motion Abdomen: Soft, nontender, nondistended, normal bowel sounds Extremities: Normal range of motion grossly, equal radial pulses, no cyanosis clubbing or edema Neurologic: Cranial nerves grossly intact, speech is clear Skin: warm and dry Psychiatric: Calm, cooperative, no apparent delusions or hallucinations Core Measures ACS in differential dx? No Severe Sepsis Present: No Septic Shock Present: No Progress Differential Diagnosis: PVCs/PACs, V-fib/V-Tach, ANXIETY Plan of Care: Orders Procedure Date/time Status Regular Diet 10/11 D Active URINE DRUG SCREEN FOR ER ONLY 10/11 1523 Complete ED CRISIS PSYCH CONSULT 10/11 1210 Active Add-on Test (ER Only) 10/11 1042 Active MAGNESIUM 10/11 1027 Complete TROPONIN LEVEL 10/11 1019 Complete COMPREHENSIVE METABOLIC PANEL 10/11 1019 Complete CBC WITHOUT DIFFERENTIAL 10/11 1019 Complete EKG 10/11 0926 Active Laboratory Tests 10/11/16 1533: Urine Opiates Screen < 100.00, Methadone Screen 44, Barbiturate Screen < 60, Ur Phencyclidine Scrn < 6.00, Amphetamines Screen < 100, U Benzodiazepines Scrn < 85, Urine Cocaine Screen < 50, Urine Cannabis Screen < 5.00 10/11/16 1027: Anion Gap 12, Estimated GFR > 60, BUN/Creatinine Ratio 15.7, Glucose 100 H, Calcium 9.7, Magnesium 1.7, Total Bilirubin 0.8, AST 20, ALT 43, Alkaline Phosphatase 92, Troponin I < 0.01, Total Protein 7.6, Albumin 4.0, Globulin 3.6, Albumin/Globulin Ratio 1.1, CBC w Diff NO MAN DIFF REQ, RBC 5.02, MCV 87.8, MCH 28.7, RDW 15.3 H, MPV 8.4, Gran % 83.6 H, Lymphocytes % 10.0 L, Monocytes % 6.1, Eosinophils % 0.1, Basophils % 0.2, Absolute Granulocytes 9.4 H, Absolute Lymphocytes 1.1 L, Absolute Monocytes 0.7 H, Absolute Eosinophils 0, Absolute Basophils 0, PUBS MCHC 32.7 L Initial ED EKG: NSR, no ST T wave changes Prior EKG: unchanged Comments: 10/11/2016 12:09:53 PM I have updated Gilberto and his father on test results. He feels he would benefit from a consult with the stereoptician. He is concerned about worsening insomnia and anxiety. He denies SI or HI. He denies auditory hallucinations. However he does state his mind is racing. Departure Departure Disposition: HOME OR SELF CARE Condition: Stable Clinical Impression Primary Impression: Palpitations Secondary Impressions: Insomnia Qualifiers: Insomnia type: unspecified Qualified Code: G47.00 - Insomnia, unspecified Referrals: APRIL ZEPEDA,PUNEET Kraft (PCP/Family) Additional Instructions: Follow-up with a driver starting gate as soon as possible regarding your heart palpitations. Follow-up as discussed with the stereoptician regarding your insomnia. Avoid caffeine in the evening. Notify your primary care physician of this emergency department visit and treatment plan. Return if any concerns or sudden worsening. Please note that there might be incidental findings in your evaluation that are unrelated to the current emergency department visit. Please notify your primary care doctor about this emergency department visit in order to obtain and review all of the testing performed so that these incidental findings can be monitored as needed. If you had an x-ray performed, please understand that some fractures may not be seen on the initial set of x-rays. If your symptoms persist you might need a repeat set of x-rays to check for such a fracture. If you had a laceration evaluated, please understand that foreign bodies such as glass or wood may not be visible to the naked eye or on plain x-rays. If the wound becomes red, swollen, increasingly more painful or if there is any drainage from the wound, please have it reevaluated by a physician for the possibility of a retained foreign body. Thank you for choosing the [facility] Emergency Department for your care. It was a pleasure to serve you today. Maximus Quigley M.D. [facility] Thank you for choosing the [facility] Department for your care. It was a pleasure to serve you today. Maximus Quigley M.D. [facility] Departure Forms: Customer Survey General Discharge Information Critical Care Note Critical Care Note Critical Care Time: non-applicable
[2016-10-11 10:55] LABS: GRANULOCYTE % 83.6 % (42.2-75.2)
[2016-10-11] MEDS ORDERED: MIRTAZAPINE30 M2 PO (17:54)
--- NOTE | 2016-10-11 19:01 | ED PSYCH CRISIS CONSULTATION ---
Crisis Consult Basic Assessment Date of Consult: 10/11/16 Responsible Person/Accompanied By: Brought in by parent Insurance Authorization: Insurance #1: Insurance name: RICHARD JAY Phone number: Policy number: [id number] Group number: [id number] Authorization number: ED Provider: Patient's ED Provider: NICOLETTE QUIGLEY MD Primary Care Physician: Patient's PCP: PUNEET CHEN MD PCP's Current Psychiatrist: No psychiatry currently Chief Complaint: Insomnia, anxiety, and panic attacks Patient's Quote: "I hit a breaking point...I started coming down w/ chronic insomnia." Present Illness: Patient is a 51 year old single male who presents to the emergency department primarily with somatic complaints - heart palpitations which may have been triggered by PVCs. Patient also reported anxiety, insomnia and panic attacks to attending physician who requested a crisis consulatation. Patient is medically cleared. 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 Patient has been unable to attend work consistently due to medical issues and insomnia issues recently. Patient has been thinking about applying for short-term disability for paid time off. This repairer typewriter met with patient who presented alert, oriented, and euthymic. Patient was observed to be slightly fidgety but did not appear anxious. Patient was calm, cooperative and was able to report his medical and psychosocial history. Patient denies current suicidal ideation, intent or planning. Patient reports having passive suicidal ideation during past episodes of insomnia but denies he has ever had suicidal intent / plan. Patient reports recurrent panic attacks which are likely triggered by worrying thoughts about his prognosis, symptoms of PVCs, and baseline general anxiety. Patient has longstanding Crohn's disease. Patient was diagnosed last year with intestinal cancer and underwent chemotherapy. Patient had a recent PET scan to rule out metastases in the lymph nodes which came back negative. Patient did receive a positive diagnosis for PVCs after wearing a Holter monitor. Patient reports he has had limited sleep since Friday 10/06. Patient has been evaluated in the emergency room several times recently on 08/22, 09/22, and 09/28 for concerns of anxiety. Patient has had medication trials to address anxiety and insomnia with mirtazapine, lexapro, and trazadone prescribed by his primary care physician. Patient has recently changed his coffee consumption and is now drinking only decaffeinated coffee. Patient has been referred to a butane compressor operator for treatment of the PVCs. Patient also has an outpatient therapy appointment tomorrow 10/12 w his counselor MK Sanderson. Patient states he feels safe to return home and follow up with his PCP and the above two appointments. Patient's Address: [address] [place] [address] Other Who Do You Live With? Father Family/Informants Interviewed: no family/collateral ID'd (Could not contact therapist), cannot be obtained due to (Father unavailable) Allergies - Coded Allergies: infliximab (From REMICADE) (Severe, SHORT OF BREATH 09/06/15) Penicillins (PLATELETS DECREASE 11/04/15) azathioprine (From IMURAN) ("PLATLETS DISAPPEARED" 09/28/16) cefuroxime (GI DISTRESS 09/06/15) ibuprofen (AVOIDS IBUPROFEN - UPSET STOMACH 11/03/15) Current Medications - Scheduled Medications Aspirin (Ecotrin*) 81 MG TABLET.DR 1 TAB PO DAILY HEART/BLOOD (Reported) Entered as Reported by SOLIS LONG on 09/22/16 193 Escitalopram Oxalate 10 MG TABLET 1 TAB PO DAILY MENTAL HEALTH #30 (Reported) Entered as Reported by SOLIS LONG on 09/22/161928 Last Taken: Unknown Dose at an unknown date and time Magnesium Oxide (Magnesium) 400 MG CAPSULE 1 CAP PO DAILY low magnesium level #30 CAP Prescribed by NICOLETTE QUIGLEY MD on 09/22/16 Mirtazapine 30 MG TABLET 1 TAB PO QPM SLEEP #90 (Reported) Entered as Reported by SOLIS LONG on 10/11/16 1754 Multivitamin (Multiple Vitamins) 1 EACH TABLET 1 TAB PO EOD SUPPLEMENT ( Reported) Entered as Reported by SOLIS LONG on 10/28/15 1618 Pregabalin (Lyrica) 75 MG CAPSULE 1 CAP PO BID NERVE PAIN #60 (Reported) Entered as Reported by SOLIS LONG on 09/22/161928 Last Taken: Unknown Dose at an unknown date and time Trazodone HCl 50 MG TABLET 1 TAB PO QPM SLEEP #30 (Reported) Entered as Reported by SOLIS LONG on 09/22/161929 Last Taken: Unknown Dose at an unknown date and time Zolpidem Tartrate (Ambien) 5 MG TABLET 1 TAB PO QPMP insomnia #10 TAB Prescribed by NICOLETTE QUIGLEY MD on 09/22/16 Last Taken: Unknown Dose at an unknown date and time Scheduled PRN Medications Alprazolam 0.25 MG TABLET 1 TAB PO TIDPRN PRN ANXIETY #60 (Reported) Entered as Reported by SOLIS LONG on 09/22/161928 Last Taken: Unknown Dose at an unknown date and time Diphenoxylate HCl/Atropine (Lomotil 2.5-0.025 MG Tablet) 2.5 MG-0.025 MG TABLET 1 TAB PO 4 TIMES/DAY PRN DIARRHEA #60 (Reported) Entered as Reported by SOLIS LONG on 09/22/161929 Laboratory Results: Laboratory Tests 10/11/16 1533: Urine Opiates Screen < 100.00, Methadone Screen 44, Barbiturate Screen < 60, Ur Phencyclidine Scrn < 6.00, Amphetamines Screen < 100, U Benzodiazepines Scrn < 85, Urine Cocaine Screen < 50, Urine Cannabis Screen < 5.00 10/11/16 1027: Anion Gap 12, Estimated GFR > 60, BUN/Creatinine Ratio 15.7, Glucose 100 H, Calcium 9.7, Magnesium 1.7, Total Bilirubin 0.8, AST 20, ALT 43, Alkaline Phosphatase 92, Troponin I < 0.01, Total Protein 7.6, Albumin 4.0, Globulin 3.6, Albumin/Globulin Ratio 1.1, CBC w Diff NO MAN DIFF REQ, RBC 5.02, MCV 87.8, MCH 28.7, RDW 15.3 H, MPV 8.4, Gran % 83.6 H, Lymphocytes % 10.0 L, Monocytes % 6.1, Eosinophils % 0.1, Basophils % 0.2, Absolute Granulocytes 9.4 H, Absolute Lymphocytes 1.1 L, Absolute Monocytes 0.7 H, Absolute Eosinophils 0, Absolute Basophils 0, PUBS MCHC 32.7 L Past History Past Medical History Any Pertinent Medical History? 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 Physical Limitations (Interventions): none stated Psychiatric Treatment History Psych Treatment Psychiatric Treatment Yes Inpatient Treatment No Outpatient Treatment Yes ([facility] ) Location of Treatment [place], [place] Reason for Treatment Anxiety Dates of Treatment Unknown Response to Treatment Positive- patient has had 3 sessions with current therapist focused mainly on work related stressors. Diagnosis by History: Pt has no hx of dx. He said he has experience emotional distress in the past. Substance Use/Abuse History Drug Use/Abuse Substances Used/Abused No First Use Pt. denies Last Used - How much used/taken - How often - For how long - Route of use - Substance Abuse Treatment Substance Abuse Treatment Past Substance Abuse [place] No Inpatient Treatment No Outpatient Treatment No Location of Treatment - Reason for Treatment - Dates of Treatment - Response to Treatment - Comments: - Current Mental Status Mental Status Orientation: Person, Place, Situation Affect: Flat Speech: WNL Neuro-vegetative: Sleep Disturbance Appearance Appearance- Dress/Hygiene: Pt. dressed in personal clothing. No remarkable features observed. Behaviors Thought Process: WNL Thought Content: WNL Memory: WNL Insight: Fair SI/HI Risk Assessment Past Suicidal Ideation/Attempts Yes (Past SI secondary to insomnia) Current Suicidal Ideation/Att No (Patient denies) Past Homicidal Ideation/Att: No (Patient denies) Current Homicidal Ideation/Attempts No (Patient denies) Degree of Intent: None Danger To: No danger Gravely Disabled: Not indicated Risk Factors: chronic/serious med cond., high anxiety/distress, male Lethality Ratin (mild) PTSD Checklist PTSD Done? patient declined (No trauma history) ED Management Sitter: Yes (Patient calm and cooperative) Restraints: No DSM5/PS Stressors/Medical Prob Diagnosis' (DSM 5, Stressors, Medical): F41.9 Unspecified Anxiety Disorder F41.0 Panic disorder Rule - out for G47.8 Other specified sleep-wake disorder. Current GAF: 50 Comments: Chronic insomnia Work related stressors Departure Disposition Psych Medical Clearance Date: 10/11/16 Medically Cleared at: 1730 Time Started: 1730 Time Ended: 1814 Psychiatrist Consulted: Nathaniel Braun MD Date Disposition Established: 10/11/16 Time Disposition Established: 1814 Plan for Disposition - Modality: Discharge Facility: [facility] Follow-up Appt Date: 10/12/16 Contact: MK Sanderson Telephone: [phone] Rationale for Disposition: Patient's crisis evaluation reviewed with on-call psychiatrist Dr. Braun and attending physician Dr. Quigley. Patient denies any high risk factors such as SI/HI or psychosis. Patient has follow-up appointments with a butane compressor operator to address concerns of heart palpitations and with his outpatient therapist. Patient advised to consider insomnia focused cognitive behavioral therapy. Referrals APRIL ZEPEDA,PUNEET Kraft (PCP/Family)
[2016-10-11 19:05] VITALS: BP 130/80
== END 2016-10-11 19:06 ==
LOC: ERH 09:24
PROVIDERS: Emergency Medicine
DX: R00.2 Palpitations (principal); G47.00 Insomnia, unspecified
CPT/HCPCS: 80307; 93005; 93010; G0463